=== PATIENT | male | born 1995 | race Caucasian/White ===

== ENCOUNTER 2017-03-01 17:18 | Emergency (ER) ==
--- NOTE | 2017-03-01 17:36 | ED.PDOC ---
General ED Provider: Dr. CINTHYA MENA-ER Chief Complaint: Foot Pain/Injury Stated Complaint: i think im getting cellulitis in my foot--aleja had it in my otehr foot and this is how it started Time Seen by Physician: 17:20 Mode of Arrival: Walk-In Information Source: Patient Exam Limitations: No limitations Primary Care Provider: FANNY LANE Nursing and Triage Documentation Reviewed and Agree: Yes Skin Complaint Exam - Skin/Soft Tissue Complaint/Exam Onset/Duration: 24hrs Symptoms Are: Still present Timing: Constant Initial Severity: Mild Current Severity: Mild Location: right 3rd toe and medial aspect of foot Character: Reports: Redness, Swelling Aggravating: Reports: None Alleviating: Reports: None Associated Signs and Symptoms: Reports: Tenderness, Red streaks. 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 Related Surgical History: Reports: None Recent Exposure to Others w/Similar Symptoms: No Skin Findings: Present: Erythema, Skin lesion, Weeping skin, Pustules Joint Tenderness Present: No Differential Diagnoses: Cellulitis, Infection Review of Systems - Review Of Systems Constitutional: Reports: No symptoms Eyes: Reports: No symptoms Ears, Nose, Mouth, Throat: Reports: No symptoms Respiratory: Reports: No symptoms Cardiac: Reports: No symptoms GI: Reports: No symptoms : Reports: No symptoms Musculoskeletal: Reports: No symptoms Skin: Reports: Lesions, Lumps Neurological: Reports: No symptoms Endocrine: Reports: No symptoms Hematologic/Lymphatic: Reports: No symptoms All Other Systems: Reviewed and Negative Past Medical History - Past Medical History Endocrine: Reports: Other Cardiovascular: Reports: Other Respiratory: Reports: Other Hematological: Reports: Other Gastrointestinal: Reports: Other Genitourinary: Reports: Other Neuro/Psych: Reports: Other Musculoskeletal: Reports: Other Cancer: Reports: Other - Surgical History General Surgical History: Reports: Unknown - Family History Family History: Reports: Unknown - Social History Smoking Status: Never smoker Hx Substance Use: No Alcohol Screening: None Lives: With family - Immunizations Tetanus Shot up to Date: Yes Physical Exam - Physical Exam Appearance: Well-appearing, No pain distress, Well-nourished Pain Distress: Mild Eyes: JEANNE, EOMI, Conjunctiva clear ENT: Ears normal, Nose normal, Oropharynx normal Neck: Supple Respiratory: Airway patent, Breath sounds clear, Breath sounds equal, Respirations nonlabored Cardiovascular: RRR, Pulses normal, No rub, No murmur GI/: Soft, Nontender, No masses, Bowel sounds normal, No Organomegaly Musculoskeletal: Normal strength, ROM intact, No edema, No calf tenderness Skin: Warm (notd small pustules on right foot) Neurological: Sensation intact, Motor intact, Reflexes intact, Cranial nerves intact, Alert, Oriented Psychiatric: Affect appropriate, Mood appropriate Critical Care Note - Critical Care Note Total Time (mins): 0 Course - Course Vital Signs: Temp Pulse Resp BP Pulse Ox 03/01/17 17:19 98.3 F 60 16 112/69 97 Departure - Departure Time of Disposition: 17:37 Disposition: HOME SELF-CARE Discharge Problem: Cellulitis Qualifiers: Site of cellulitis: extremity Site of cellulitis of extremity: toe Laterality: right Qualifier Code: (L03.031) Cellulitis of right toe Instructions: Cellulitis (ED) Condition: Good Pt referred to PMD for follow-up: Yes Additional Instructions: clindamycin 150mg tid x 7days--wash foot with soap and water and apply bactroban ointment till healed--f.u with pcp Allergies/Adverse Reactions: Allergies montelukast sodium [From Singulair] Adverse Reaction (Verified 03/01/17 17:27) Home Medications: Ambulatory Orders Albuterol Sulfate [Albuterol Sulfate Hfa] 2 puff IH DIRECTED PRN 05/07/14 Disposition Discussed With: Patient
[2017-03-01 17:38] VITALS: BP 112/69; TEMP 98.3; BMI 23.1
== END 2017-03-01 17:44 | disposition home or self-care (01) ==
LOC: ED 17:18
DX: L03.031 Cellulitis of right toe (principal)
CPT/HCPCS: 99282

== ENCOUNTER 2017-06-03 18:15 | Emergency (ER) ==
[2017-06-03 18:22] VITALS: BP 133/77; TEMP 98.7; BMI 21.5
--- NOTE | 2017-06-03 18:31 | ED.PDOC ---
General ED Provider: Dr. CHRISTIE MILLER Chief Complaint: Foot Pain/Injury Stated Complaint: Patient came for the both feet swelling on and off for 3 months, and also some redness in rt foot 4-5 toes, had this before used the nystatin got better,. also has 2 spots on rt forearm , they are red. Time Seen by Physician: 18:29 Mode of Arrival: Walk-In Information Source: Patient Nursing and Triage Documentation Reviewed and Agree: Yes Skin Complaint Exam - Skin/Soft Tissue Complaint/Exam Symptoms Are: Still present Timing: Constant Initial Severity: Mild Current Severity: Mild Character: Reports: Redness. Denies: Swelling, Raised, Painful Aggravating: Reports: None Alleviating: Reports: None Associated Signs and Symptoms: Denies: Fever, Chills, Itching, Drainage, Bruising, Tenderness, Red streaks, Joint swelling Related Surgical History: Reports: None Recent Exposure to Others w/Similar Symptoms: No Skin Findings: Present: Erythema. Absent: Induration, Fluctuant mass, Lymphadenopathy, Lymphangitic streaking Differential Diagnoses: Cellulitis, Infection, Other (athlets foot) Review of Systems - Review Of Systems Constitutional: Reports: No symptoms Eyes: Reports: No symptoms Ears, Nose, Mouth, Throat: Reports: No symptoms Respiratory: Reports: No symptoms Cardiac: Reports: No symptoms GI: Reports: No symptoms : Reports: No symptoms Musculoskeletal: Reports: No symptoms Skin: Reports: No symptoms Neurological: Reports: No symptoms Endocrine: Reports: No symptoms Hematologic/Lymphatic: Reports: No symptoms All Other Systems: Reviewed and Negative Past Medical History - Past Medical History Previously Healthy: Yes Endocrine: Reports: Other Cardiovascular: Reports: Other Respiratory: Reports: Other Hematological: Reports: Other Gastrointestinal: Reports: Other Genitourinary: Reports: Other Neuro/Psych: Reports: Other Musculoskeletal: Reports: Other Cancer: Reports: Other - Surgical History General Surgical History: Reports: Unknown - Family History Family History: Reports: Unknown - Social History Smoking Status: Never smoker Hx Substance Use: No Alcohol Screening: None - Immunizations Tetanus Shot up to Date: Yes Physical Exam - Physical Exam Appearance: Well-appearing, No pain distress, Well-nourished Eyes: JEANNE, EOMI, Conjunctiva clear ENT: Ears normal, Nose normal, Oropharynx normal Respiratory: Airway patent, Breath sounds clear, Breath sounds equal, Respirations nonlabored Cardiovascular: RRR, Pulses normal, No rub, No murmur GI/: Soft, Nontender, No masses, Bowel sounds normal, No Organomegaly Musculoskeletal: Normal strength, ROM intact, No edema, No calf tenderness Skin: Warm, Dry, Normal color Neurological: Sensation intact, Motor intact, Reflexes intact, Cranial nerves intact, Alert, Oriented Psychiatric: Affect appropriate, Mood appropriate Critical Care Note - Critical Care Note Total Time (mins): 0 Course - Course Vital Signs: Temp Pulse Resp BP Pulse Ox 06/03/17 18:15 98.7 F 73 20 133/77 97 Departure - Departure Time of Disposition: 18:34 Disposition: HOME SELF-CARE Discharge Problem: Tinea pedis of right foot, Folliculitis Instructions: Skin Yeast Infection (ED) Condition: Stable Pt referred to PMD for follow-up: Yes Additional Instructions: please get the nystatin pdr otc keep feet dry. Prescriptions: Clindamycin HCl 300 mg PO TID #15 capsule Allergies/Adverse Reactions: Allergies montelukast sodium [From Singula] Adverse Reaction (Verified 06/03/17 18:24) SEIZURES Home Medications: Ambulatory Orders Albuterol Sulfate [Albuterol Sulfate Hfa] 2 puff IH DIRECTED PRN 05/07/14 Clindamycin HCl 300 mg PO TID #15 capsule 06/03/17 Disposition Discussed With: Patient
== END 2017-06-03 18:38 | disposition home or self-care (01) ==
LOC: ED 18:15
DX: B35.3 Tinea pedis (principal); L73.9 Follicular disorder, unspecified
CPT/HCPCS: 99282